=== PATIENT | male | born 1980 ===

== ENCOUNTER → 2018-07-14 22:11 | Outpatient (ROUT) | payer OTHER, SELFPAY ==
[2018-07-14 22:51] LABS: Alanine Aminotransferase 38 IU/L (21-72); Albumin 4.6 g/dL (3.5-5.0); Albumin Globulin Ratio 1.6 (1.0-2.8); Alkaline Phosphatase 58 U/L (38-126); Aspartate Aminotransferase 27 IU/L (17-59); Bilirubin Total 0.6 mg/dL (0.2-1.3); Blood Urea Nitrogen 18 mg/dL (9-20); Calcium 9.2 mg/dL (8.4-10.2); Carbon Dioxide 29 mmol/L (22-32); Chloride 102 mmol/L (98-107); Estimated Glomerular Filt Rate > 60.0 mL/min (>60); Globulin 2.9 g/dL (1.7-4.1); Glucose 74 mg/dL (70-100); HEMOLYSIS < 15 (0-50); Magnesium 2.1 mg/dL (1.6-2.3); Potassium 4.3 mmol/L (3.4-5.1); Sodium 140 mmol/L (137-145); Total Protein 7.5 g/dL (6.3-8.2)
[2018-07-14 22:52] LABS: Add Manual Diff / Slide Review NO; Basophils Absolute Auto 0 /uL (0-100); Basophils Percent Auto 0.9 % (0-2); Eosinophils Absolute Auto 200 /uL (0-450); Hematocrit 42.8 % (41-53); Hemoglobin 14.1 g/dL (13.5-17.5); Lymphocytes Absolute Auto 1800 /uL (1100-4500); Lymphocytes Percent Auto 32.2 % (25-40); Mean Corpuscular HGB Conc 32.9 % (30-36); Mean Corpuscular Hemoglobin 30.6 PG (26-34); Mean Corpuscular Volume 92.9 fL (80-100); Monocytes Absolute Auto 400 /uL (0-900); Monocytes Percent Auto 6.8 % (3-14); Neutrophils Absolute Auto 3100 /uL (1500-7000); Neutrophils Percent Auto 57.1 % (50-75); Platelet Count 200 X10^3/uL (150-400); Red Blood Cell Count 4.61 X10^6/uL (4.5-5.9); Red Cell Distribution Width 13.2 % (11.6-14.8); White Blood Cell Count 5.4 X10^3/uL (4.5-11.0)
[2018-07-14 23:10] LABS: Free T3, Triiodothyronine Free 3.99 pg/mL (2.77-5.27); Free T4, Direct Thyroxine 1.19 ng/dL (0.78-2.19)
[2018-07-14 23:58] LABS: Vitamin B12 401 pg/mL (239-931)
[2018-07-19 15:37] LABS: RPR Screen Nonreactive (Nonreactive)
== END ==
PROVIDERS: Visit Provider Physician Assistant
DX: F41.9 Anxiety disorder, unspecified (principal); F22 Delusional disorders; G44.89 Other headache syndrome; H53.9 Unspecified visual disturbance; R20.8 Other disturbances of skin sensation; G25.81 Restless legs syndrome; Z81.8 Family history of other mental and behavioral disorders
CPT/HCPCS: 36415; 80053; 82607; 82728; 82746; 83735; 84439; 84443; 84481; 85025; 86592